=== PATIENT | female | born 1970 | race Caucasian/White ===

== ENCOUNTER → 2021-12-28 | Day surgery (SDC) | payer OTHER ==
[~2021-12-28] VITALS: Ht 162.6 cm; Wt 74.4 kg
[~2021-12-28] MED LIST: COLACE100 MG PO; MOTRIN600 MG PO; NURTEC ODT75 MG PO; PERCOCET 5-3251 EACH PO
[2021-12-28 08:38] LABS: HCT 42.1 % (37.0-47.0); HGB 14.2 g/dl (12.5-16.0); MCH 29.3 pg (25.0-31.0); MCHC 33.7 g/dL (32.0-36.0); MPV 10.5 fL (6.0-9.5); RBC 4.84 M/uL (4.20-5.40); RDW 13.2 % (11.5-14.0); WBC 5.5 K/uL (4.0-10.5)
[2021-12-28 09:05] LABS: HCG (URINE) SCREEN NEGATIVE (NEGATIVE)
== END | disposition home or self-care (01) ==
LOC: FAS 08:00
PROVIDERS: Anesthesiology; Obstetrics & Gynecology
DX: D25.1 Intramural leiomyoma of uterus (principal); N72 Inflammatory disease of cervix uteri; N87.9 Dysplasia of cervix uteri, unspecified; N80.0 Endometriosis of uterus; N80.2 Endometriosis of fallopian tube; N93.9 Abnormal uterine and vaginal bleeding, unspecified; G43.909 Migraine, unspecified, not intractable, without status migrainosus; Z98.51 Tubal ligation status
CPT/HCPCS: 36415; 84703; 86850; 86900; 86901; 87088; J0690; J1100; J1885; J2250; J2405; J2704; J3010; J7120